=== PATIENT | female | born 1945 | race Caucasian/White ===

== ENCOUNTER 2017-03-09 16:02 | Emergency (ER) | payer MEDICARE ==
[2017-03-09 18:09] LABS: Basophils % (Auto) 0.8 % (0.0-1.8); Hematocrit 41.5 % (30.3-42.9); Hemoglobin 13.8 gm/dl (10.1-14.3); Mean Corpuscular HGB Conc 33 % (30-34); Mean Corpuscular Hemoglobin 32 pg (28-32); Mean Corpuscular Volume 96 fl (79-97); Platelet Count 295 K/mm3 (140-440); Red Blood Count 4.32 M/mm3 (3.65-5.03); Red Cell Distribution Width 13.3 % (13.2-15.2); White Blood Count 7.1 K/mm3 (4.5-11.0)
[2017-03-09 18:14] LABS: Anion Gap 17 mmol/L; BUN/Creatinine Ratio 38.33; Blood Urea Nitrogen 23 mg/dL (7-17); Calcium 9.3 mg/dL (8.4-10.2); Carbon Dioxide 26 mmol/L (22-30); Chloride 102.5 mmol/L (98-107); Glucose 108 mg/dL (65-100); Potassium 4.5 mmol/L (3.6-5.0); Sodium 141 mmol/L (137-145)
--- NOTE | 2017-03-09 19:12 | Cat Scan Report ---
FINAL REPORT EXAM: CT CERVICAL SPINE WO CON HISTORY: fall with neck pain TECHNIQUE: Standard CT cervical spine obtained at 2.5 millimeter axial increments. Coronal and sagittal reconstruction was also performed. PRIORS: None. FINDINGS: The vertebral bodies are intact. There is no evidence for acute fracture. There is no evidence for paravertebral soft tissue swelling. Alignment is maintained. Hypertrophic facet joint degenerative changes are present at C2 through C6 to the right. IMPRESSION: No acute abnormality of the cervical spine.
--- NOTE | 2017-03-09 19:13 | Cat Scan Report ---
FINAL REPORT EXAM: CT HEAD/BRAIN WO CON HISTORY: Fall TECHNIQUE: Standard unenhanced CT of the head at 5.0 millimeter axial increments. PRIORS: None. FINDINGS: The ventricular system is normal in size and configuration. There is no evidence for parenchymal volume loss. There is no evidence for mass lesion, mass effect, midline shift, acute intracranial hemorrhage, or acute ischemia/ infarction. No evidence for acute skull fracture is seen. No abnormality in the overlying scalp soft tissues is seen. Visualized paranasal sinuses are clear. IMPRESSION: Negative CT of the head. No acute intracranial process noted.
[2017-03-09] MEDS ORDERED: ULTRAM PO ONE (20:36)
[2017-03-09] MEDS ORDERED: MOTRIN PO ONE (20:36)
--- NOTE | 2017-03-09 20:41 | Emergency Department Report ---
ED Fall HPI - General Chief Complaint: Fall Stated Complaint: FALL Time Seen by Provider: 03/09/17 19:55 Source: EMS, sales[employer] Mode of arrival: Stretcher Limitations: Language Barrier (spool sorter useed) - History of Present Illness Initial Comments: 71-year-old female with a past medical history of hypertension and osteoporosis presents to the hospital with head injury. Patient had a ground-level fall. She was exercising doing stand up and sit down at this she became dizzy, fell backwards, struck the back of her head. She presents to the ER with complaints of posterior head and neck pain. Pain is 8/10 in intensity, constant, worse with palpation and movement. No specific alleviating factors reported. No LOC reported. No chest pain, shortness of breath, generalized weakness, or dizziness at this time. Patient placed in cervical collar prior after arrival to ED. PMD: Dr. Ha Grey - Related Data Home Medications Medication Instructions Recorded Confirmed Last Taken Valsartan/Hydrochlorothiazide 1 each PO QDAY 12/09/14 12/09/14 Unknown [Valsartan-Hctz 80-12.5 mg] Previous Rx's Medication Instructions Recorded Last Taken Type Clindamycin [Cleocin] 300 mg PO Q8H 7 Days 12/13/14 Unknown Rx Fexofenadine HCl [Mucinex Allergy] 180 mg PO QHS #7 tablet 12/13/14 Unknown Rx Lactobac Cmb #3/Fos/Pantethine 1 each PO QDAY #10 capsule 12/13/14 Unknown Rx [Probiotic & Acidophilus Cap] Ibuprofen [Motrin 600 MG tab] 600 mg PO ONCE PRN #30 tablet 03/09/17 Unknown Rx traMADol [Ultram 50 MG tab] 50 mg PO ONCE PRN #20 tablet 03/09/17 Unknown Rx Allergies Allergy/AdvReac Type Severity Reaction Status Date / Time piperacillin sodium Allergy Itching Verified 12/11/14 09:50 [From Zosyn] tazobactam sodium Allergy Itching Verified 12/11/14 09:50 [From Zosyn] ED Review of Systems ROS: Stated complaint: FALL Other details as noted in HPI Comment: All other systems reviewed and negative ED Past Medical Hx - Past Medical History Previous Medical History?: Yes Hx Hypertension: Yes Hx Congestive Heart Failure: No Hx Diabetes: No Hx Asthma: No Hx COPD: No Additional medical history: osteoporosis - Surgical History Past Surgical History?: Yes Additional Surgical History: bilateral knee surgery - Social History Smoking Status: Never Smoker Substance Use Type: None - Medications Home Medications: Home Medications Medication Instructions Recorded Confirmed Last Taken Type Valsartan/Hydrochlorothiazide 1 each PO QDAY 12/09/14 12/09/14 Unknown History [Valsartan-Hctz 80-12.5 mg] Clindamycin [Cleocin] 300 mg PO Q8H 7 Days 12/13/14 Unknown Rx Fexofenadine HCl [Mucinex Allergy] 180 mg PO QHS #7 tablet 12/13/14 Unknown Rx Lactobac Cmb #3/Fos/Pantethine 1 each PO QDAY #10 capsule 12/13/14 Unknown Rx [Probiotic & Acidophilus Cap] Ibuprofen [Motrin 600 MG tab] 600 mg PO ONCE PRN #30 tablet 03/09/17 Unknown Rx traMADol [Ultram 50 MG tab] 50 mg PO ONCE PRN #20 tablet 03/09/17 Unknown Rx ED Physical Exam - General Limitations: Language Barrier - Other Other exam information: General: No limitations, patient is alert in no acute distress Head exam: Atraumatic, normocephalic, no hematoma Eyes exam: Normal appearance, pupils equal reactive to light, extraocular movements intact ENT: Moist mucous membrane, normal oropharynx Neck exam: Normal inspection, full range of motion, is posterior neck tenderness without crepitus. Right sided neck muscles/trapezius tenderness Respiratory exam: Clear to auscultation bilateral, no wheezes, rales, crackles Cardiovascular: Normal rate and rhythm, normal heart sounds Abdomen: Soft, nondistended, and nontender, with normal bowel sounds, no rebound, or guarding Extremity: Full range of motion normal inspection no deformity. Left anterior knee surgical scar noted Back: Normal Inspection, full range of motion, no tenderness Neurologic: Alert, oriented x3, cranial nerves intact, no motor or sensory deficit Psychiatric: normal affect, normal mood Skin: Warm, dry, intact ED Course Vital Signs 03/09/17 03/09/17 03/09/17 16:20 16:56 18:28 Temperature 98.3 F 98.5 F Pulse Rate 72 69 70 Respiratory 12 13 Rate Blood Pressure 135/66 Blood Pressure 136/66 [Right] O2 Sat by Pulse 98 99 Oximetry - Reevaluation(s) Reevaluation #1: 03/09/17 21:33 She received Motrin and tramadol for pain prior to discharge. Orthostatics were negative and patient does not complain of feeling dizzy ED Medical Decision Making - Lab Data Result diagrams: 03/09/17 17:18 03/09/17 17:18 Lab Results 03/09/17 03/09/17 03/09/17 Range/Units 17:18 17:18 17:18 WBC 7.1 (4.5-11.0) K/mm3 RBC 4.32 (3.65-5.03) M/mm3 Hgb 13.8 (10.1-14.3) gm/dl Hct 41.5 (30.3-42.9) % MCV 96 (79-97) fl MCH 32 (28-32) pg MCHC 33 (30-34) % RDW 13.3 (13.2-15.2) % Plt Count 295 (140-440) K/mm3 Lymph % (Auto) 22.1 (13.4-35.0) % [place] % (Auto) 10.5 H (0.0-7.3) % Eos % (Auto) 2.0 (0.0-4.3) % Baso % (Auto) 0.8 (0.0-1.8) % Lymph # 1.6 (1.2-5.4) K/mm3 [place] # 0.7 (0.0-0.8) K/mm3 Eos # 0.1 (0.0-0.4) K/mm3 Baso # 0.1 (0.0-0.1) K/mm3 Seg Neutrophils % 64.6 (40.0-70.0) % Seg Neutrophils # 4.6 (1.8-7.7) K/mm3 PT 13.1 (12.2-14.9) Sec. INR 1.00 (0.87-1.13) APTT 32.0 (24.2-36.6) Sec. Sodium 141 (137-145) mmol/L Potassium 4.5 (3.6-5.0) mmol/L Chloride 102.5 (98-107) mmol/L Carbon Dioxide 26 (22-30) mmol/L Anion Gap 17 mmol/L BUN 23 H (7-17) mg/dL Creatinine 0.6 L (0.7-1.2) mg/dL Estimated GFR > 60 ml/min BUN/Creatinine Ratio 38.33 % Glucose 108 H (65-100) mg/dL Calcium 9.3 (8.4-10.2) mg/dL CK-MB (CK-2) (0.0-4.0) ng/mL Troponin T (0.00-0.029) ng/mL 03/09/17 03/09/17 Range/Units 17:18 17:18 WBC (4.5-11.0) K/mm3 RBC (3.65-5.03) M/mm3 Hgb (10.1-14.3) gm/dl Hct (30.3-42.9) % MCV (79-97) fl MCH (28-32) pg MCHC (30-34) % RDW (13.2-15.2) % Plt Count (140-440) K/mm3 Lymph % (Auto) (13.4-35.0) % [place] % (Auto) (0.0-7.3) % Eos % (Auto) (0.0-4.3) % Baso % (Auto) (0.0-1.8) % Lymph # (1.2-5.4) K/mm3 [place] # (0.0-0.8) K/mm3 Eos # (0.0-0.4) K/mm3 Baso # (0.0-0.1) K/mm3 Seg Neutrophils % (40.0-70.0) % Seg Neutrophils # (1.8-7.7) K/mm3 PT (12.2-14.9) Sec. INR (0.87-1.13) APTT (24.2-36.6) Sec. Sodium (137-145) mmol/L Potassium (3.6-5.0) mmol/L Chloride (98-107) mmol/L Carbon Dioxide (22-30) mmol/L Anion Gap mmol/L BUN (7-17) mg/dL Creatinine (0.7-1.2) mg/dL Estimated GFR ml/min BUN/Creatinine Ratio % Glucose (65-100) mg/dL Calcium (8.4-10.2) mg/dL CK-MB (CK-2) 3.4 (0.0-4.0) ng/mL Troponin T < 0.010 (0.00-0.029) ng/mL - EKG Data -: EKG Interpreted by Me (sinus 69 rate 69 STEMI) - EKG Data When compared to previous EKG there are: previous EKG unavailable - Radiology Data Radiology results: report reviewed CT head: No acute abnormality CT cervical spine: No acute fracture, positive degenerative changes - Medical Decision Making No acute fracture identified. Labs unremarkable. Patient be discharged home PMD follow-up. Will be provided medications for pain as needed - Differential Diagnosis fracture, contusion, sprain, near syncope Critical Care Time: No Critical care attestation.: If time is entered above; I have spent that time in minutes in the direct care of this critically ill patient, excluding procedure time. ED Disposition Clinical Impression: Lightheadedness, Fall with no significant injury, Neck strain, Head contusion Disposition: TO HOME OR SELFCARE Is pt being admited?: No Does the pt Need Aspirin: No Condition: Stable Instructions: Fall Prevention for Older Adults (ED), Minor Head Injury (ED), Cervical Sprain (ED), Lightheadedness (ED) Additional Instructions: Take the medication as prescribed. Return if symptoms worsen. Follow up with your doctor. Prescriptions: Ibuprofen [Motrin 600 MG tab] 600 mg PO ONCE PRN #30 tablet PRN Reason: Pain traMADol [Ultram 50 MG tab] 50 mg PO ONCE PRN #20 tablet PRN Reason: Pain Referrals: HA GREY MD [Staff Physician] - 3-5 Days Time of Disposition: 21:34
[2017-03-09 22:01] VITALS: BP 133/68
== END 2017-03-09 22:01 | disposition home or self-care (01) ==
LOC: ED 16:02
DX: S16.1XXA Strain of muscle, fascia and tendon at neck level, initial encounter (principal); S00.93XA Contusion of unspecified part of head, initial encounter; R42 Dizziness and giddiness; I10 Essential (primary) hypertension; Z88.8 Allergy status to other drugs, medicaments and biological substances; W18.30XA Fall on same level, unspecified, initial encounter; Y93.89 Activity, other specified; Y99.9 Unspecified external cause status; Y92.89 Other specified places as the place of occurrence of the external cause
CPT/HCPCS: 36415; 70450; 72125; 80048; 82553; 84484; 85025; 85610; 85730; 93005; 93010